=== PATIENT | female | born 1970 | race Two or more races ===

== ENCOUNTER 2019-02-26 13:52 | Emergency (ER) | payer BC, OTHER ==
[~2019-02-26] VITALS: Ht 160 cm; Wt 88.5 kg
[2019-02-26 14:10] VITALS: BP 125/54
== END 2019-02-26 14:54 | disposition home or self-care (01) ==
LOC: ER 13:52
DX: G50.0 Trigeminal neuralgia (principal); Z76.0 Encounter for issue of repeat prescription